=== PATIENT | female | born 1965 | race Caucasian/White ===

== ENCOUNTER 2019-12-28 18:04 | Emergency (ER) | payer OTHER ==
[2019-12-28 18:13] VITALS: BP 126/84
[2019-12-28 19:08] LABS: Urine Appearance Clear; Urine Bilirubin Negative (Negative); Urine Blood 3+ (Negative); Urine Color Straw; Urine Glucose Negative (Negative); Urine Ketones Negative (Negative); Urine Nitrite Negative (Negative); Urine Protein Negative (Negative); Urine Specific Gravity 1.004 (1.010-1.030); Urine Urobilinogen Negative (Negative)
[2019-12-28 19:19] LABS: Urine Bacteria 1+ (Absent); Urine Red Blood Cell 3+(>10/hpf) (Absent); Urine Squamous Epithelial Cell Present (Absent); Urine White Blood Cell 1+(6-10/hpf) (Absent)
--- NOTE | 2019-12-28 19:43 | ED ---
GI/ HPI - HPI Summary HPI Summary: This pt is a 54 Y/O F presenting to [facility] accompanied by her sister with a CC of vaginal bleeding that has been present for 38 days, starting on 11/22/2019. She also states that she is currently lightheaded and has increasing symptoms when climbing stairs or standing from a sitting position. She is also presenting with a cold. She states that she is not having any pain but reports that she has been bleeding since the start of her last period. She saw her provider on 12/25/2019 and stated that she was trying to get scheduled with a fraud investigator but was denied until she was cleared by the ED for any present illness. During her blood test she had elevated liver enzymes and hemoglobin of 8.2. She was recently placed on iron supplements due to the bleeding. She states that her period has been extremely regular and has been present every 28 days. She has a Hx of clots during her period. She denies any recent fevers, N/V , abdominal pain, syncope, and SOB. She states that she was recently sick with a cold that her kids have been having. - History of Current Complaint Chief Complaint: EDVaginalBleeding Time Seen by Provider: 12/28/19 19:28 Stated Complaint: VAGINAL BLEEDING PER PT Hx Obtained From: Patient Hx Last Menstrual Period: 11/22/2019 Onset/Duration: Started Days Ago - 38, Still Present Timing: Constant Current Severity: None Vaginal Bleeding Description: Bright Red Pain Intensity: 0 Location of Pain: None Associated Signs and Symptoms: Positive: Lightheadedness, Cough, Other: - NEGATIVE: SOB. Negative: Syncope, Nausea, Vomiting, Fever, Abdominal Pain, Chest Pain Additional Signs & Symptoms: Positive: Vaginal Bleeding - Allergy/Home Medications Allergies/Adverse Reactions: Allergies Allergy/AdvReac Type Severity Reaction Status Date / Time erythromycin base Allergy Rash Verified 12/28/19 18:11 [From Erythrocin] ofloxacin [From Floxin] Allergy Unknown Verified 12/28/19 18:11 Reaction Details Sulfa (Sulfonamide Allergy Unknown Verified 12/28/19 18:11 Antibiotics) Reaction Details Home Medications: Home Medications NK [No Home Medications Reported] 12/28/19 [History Confirmed 12/28/19] PMH/Surg Hx/FS Hx/Imm Hx Previously Healthy: Yes Endocrine/Hematology History: Denies: Hx Diabetes Respiratory History: Denies: Hx Asthma Sensory History: Denies: Hx Contacts or Glasses Opthamlomology History: Denies: Hx Contacts or Glasses - Cancer History Hx Chemotherapy: No Hx Radiation Therapy: No - Surgical History Surgical History: None - Immunization History Immunizations Up to Date: Yes Infectious Disease History: No Infectious Disease History: Denies: Traveled Outside the [place] in Last 30 Days - Family History Known Family History: Negative: Hypertension, Diabetes - Social History Occupation: Employed Full-time Lives: With Family Alcohol Use: None Hx Substance Use: No Substance Use Type: Reports: None Hx Tobacco Use: No Smoking Status (MU): Never Smoked Tobacco Review of Systems Positive: Other - POSITVE: lightheadedness. Negative: Fever Negative: Chest Pain Positive: Cough. Negative: Shortness Of Breath Negative: Abdominal Pain, Vomiting, Nausea Positive: other - vaginal bleeding Negative: Syncope All Other Systems Reviewed And Are Negative: Yes Physical Exam - Summary Physical Exam Summary: Appearance: Well-appearing, Well-nourished, lying in bed comfortably Skin: Warm, dry, no obvious rash Eyes: sclera anicteric, Mildly pale conjunctiva ENT: mucous membranes moist, pharynx appears normal Neck: Supple, nontender Respiratory: Clear to auscultation, no signs of respiratory distress Cardiovascular: Normal S1, S2. No murmurs. Normal distal pulses in tibial and radial bilaterally. Abdomen: Soft, nontender, normal active bowel sounds present Musculoskeletal: Normal, Strength/ROM Intact Neurological: A&Ox3, awake and alert, mentation is normal, speech is fluent and appropriate Psychiatric: affect is normal, does not appear anxious or depressed Triage Information Reviewed: Yes Vital Signs On Initial Exam: Initial Vitals Temp Pulse Resp BP Pulse Ox 97.8 F 78 18 126/84 96 12/28/19 18:06 12/28/19 18:06 12/28/19 18:06 12/28/19 18:06 12/28/19 18:06 Vital Signs Reviewed: Yes Procedures - Sedation Patient Received Moderate/Deep Sedation with Procedure: No Diagnostics - Vital Signs Vital Signs Temp Pulse Resp BP Pulse Ox 12/28/19 18:06 97.8 F 78 18 126/84 96 - Laboratory Lab Results: Lab Results 12/28/19 Range/Units 18:50 Urine Color Straw Urine Appearance Clear Urine pH 7.0 (5-9) Ur Specific [place] 1.004 L (1.010-1.030) Urine Protein Negative (Negative) Urine Ketones Negative (Negative) Urine Blood 3+ A (Negative) Urine Nitrate Negative (Negative) Urine Bilirubin Negative (Negative) Urine Urobilinogen Negative (Negative) Ur Leukocyte Esterase Negative (Negative) Urine WBC (Auto) 1+(6-10/hpf) A (Absent) Urine RBC (Auto) 3+(>10/hpf) A (Absent) Ur Squamous Epith Cells Present A (Absent) Urine Bacteria 1+ A (Absent) Urine Glucose Negative (Negative) Result Diagrams: 12/28/19 19:31 12/28/19 19:31 Lab Statement: Any lab studies that have been ordered have been reviewed, and results considered in the medical decision making process. Re-Evaluation - Re-Evaluation First Eval Re-Evaluation Time: 20:26 Change: Improved Comment: Pt is agreeable to the Tx plan. GIGU Course/Dx - Course Course Of Treatment: This pt is a 54 Y/O F presenting to [facility] accompanied by her sister with a CC of vaginal bleeding that has been present for 38 days, starting on 11/22/2019. She also states that she is currently lightheaded and has increasing symptoms when climbing stairs or standing from a sitting position. She is also presenting with a cold. She states that she is not having any pain but reports that she has been bleeding since the start of her last period. She saw her provider on 12/25/2019 and stated that she was trying to get scheduled with a fraud investigator but was denied until she was cleared by the ED for any present illness. During her blood test she had elevated liver enzymes and hemoglobin of 8.2. She was recently placed on iron supplements due to the bleeding. She states that her period has been extremely regular and has been present every 28 days until this recent onset. Her PE found that she has mild conjunctival pallor. Her laboratory results show abnormalities in RBC 3.39, Hgb 7.2, Hct 23, MCV 69, MCH 21, RDW 18, AST 55, ALT 75, Ur specific gravity, Urine blood, WBC, RBC, Squamous Epithelial, and Bacteria. Consult at 2021, Dr. Yao, recommends a pelvic US after which the OBGYN clinic in [place] will see the pt tomorrow. Pt eloped at 2213 and elected not to have the Pelvic US. She was diagnosed with dysfunctional uterine bleeding. - Diagnoses Provider Diagnoses: Dysfunctional uterine bleeding Discharge ED - Sign-Out/Discharge Documenting (check all that apply): Patient Departure - eloped - Discharge Plan Condition: Good Disposition: ELOPEMENT Patient Education Materials: Dysfunctional Uterine Bleeding (ED) Referrals: No Primary Care Phys,NOPCP [Primary Care Provider] - Additional Instructions: Dr. Yao would like to see you in the office tomorrow, he will likely do an endometrial biopsy at that time and may start you on provera to stop the bleeding. For now your hemoglobin level is low, but not so low as to require a transfusion. - Billing Disposition and Condition Condition: GOOD Disposition: Elopement - Attestation Statements Document Initiated by Sonny: Yes Documenting Salbadoribe: Abdon Childress Provider For Whom Sonny is Documenting (Include Credential): Sumanth Marrero MD Scribe Attestation: Abdon Jim, maximed for Sumanth Marrero MD on 12/30/19 at 0233. Scribe Documentation Reviewed: Yes Provider Attestation: The documentation as recorded by the Abdon ann accurately reflects the service I personally performed and the decisions made by , Sumanth Marrero MD Status of Scribe Document: Viewed
[2019-12-28 19:57] LABS: ABS Eosinophils 0.3 10^3/ul (0-0.6); ABS Lymphocytes 1.4 10^3/ul (1.0-4.8); ABS Monocytes 0.3 10^3/ul (0-0.8); ABS Neutrophils 2.7 10^3/ul (1.5-7.7); Eosinophil % 6.6 %; Hematocrit 23 % (35-47); Hemoglobin 7.2 g/dL (12.0-16.0); Lymphocyte % 29.9 %; Mean Corpuscular HGB Conc 31 g/dL (31-36); Mean Corpuscular Hemoglobin 21 pg (27-31); Mean Corpuscular Volume 69 fL (80-97); Mean Platelet Volume 7.5 fL (7.4-10.4); Nucleated Red Blood Cells % 0.1; Platelet Count 279 10^3/uL (150-450); Red Blood Count 3.39 10^6 /uL (3.70-4.87); Red Cell Distribution Width 18 % (10-15); White Blood Count 4.7 10^3/uL (3.5-10.8)
[2019-12-28 19:59] LABS: ALT 75 U/L (7-52); AST 55 U/L (13-39); Albumin 4.1 g/dL (3.2-5.2); Albumin/Globulin Ratio 1.2 (1-3); Alkaline Phosphatase 92 U/L (34-104); Anion Gap 5 mmol/L (2-11); BUN/Creatinine Ratio 14.9 (8-20); Blood Urea Nitrogen 10 mg/dL (6-24); CO2 Carbon Dioxide 27 mmol/L (22-32); Chloride 104 mmol/L (101-111); EGFR African American 111.4 (>60); EGFR Non-African American 92.1 (>60); Globulin 3.3 g/dL (2-4); Glucose 97 mg/dL (70-100); Potassium 3.7 mmol/L (3.5-5.0); Sodium 136 mmol/L (135-145); Total Protein 7.4 g/dL (6.4-8.9)
[2019-12-28 21:18] LABS: HCG Pregnancy < 0.60 mIU/mL
--- NOTE | 2020-01-01 17:01 | ED ---
Imaging and Labs Follow Up Follow Up Type: Labs/Cultures Labs/Culture Result: Urine culture growing <10k e. coli and GBS. Patient Communication/Plan: Pt. seen for heavy vaginal bleeding. No report of urinary sxs. Will not treat given low bacterial count. Provider Diagnoses: Dysfunctional uterine bleeding
== END 2019-12-28 22:18 | disposition left against medical advice (07) ==
LOC: ED 18:04
DX: N93.8 Other specified abnormal uterine and vaginal bleeding (principal); Z88.1 Allergy status to other antibiotic agents; Z88.2 Allergy status to sulfonamides
CPT/HCPCS: 36415; 80053; 81003; 81015; 84702; 85025; 86850; 86900; 86901; 87077; 87086; 87186; 99282

== ENCOUNTER 2021-08-26 17:42 | Observation (INO) ==
[2021-08-26 18:19] LABS: Rapid COVID-19 Molecular Detected (Undetected)
[2021-08-26 20:05] LABS: Venous Bicarbonate HCO3 26.7 mmol/L (24-28)
[2021-08-26 20:08] LABS: ABS Lymphocytes 0.8 10^3/ul (1.0-4.8); ABS Monocytes 0.3 10^3/ul (0-0.8); ABS Neutrophils 2.5 10^3/ul (1.5-7.7); Eosinophil % 0.4 %; Hematocrit 40 % (35-47); Hemoglobin 13.4 g/dL (12.0-16.0); Lymphocyte % 21.8 %; Mean Corpuscular HGB Conc 34 g/dL (31-36); Mean Corpuscular Hemoglobin 29 pg (27-31); Mean Corpuscular Volume 86 fL (80-97); Mean Platelet Volume 8.6 fL (7.4-10.4); Platelet Count 115 10^3/uL (150-450); Red Blood Count 4.61 10^6 /uL (3.70-4.87); Red Cell Distribution Width 13 % (10-15); White Blood Count 3.6 10^3/uL (3.5-10.8)
[2021-08-26 20:25] LABS: Albumin 4.1 g/dL (3.2-5.2); Albumin/Globulin Ratio 1.1 (1-3); C Reactive Protein 28.35 mg/L (<8.01); Calcium 9.2 mg/dL (8.6-10.3); Globulin 3.8 g/dL (2-4); Potassium 3.1 mmol/L (3.5-5.0); Total Bilirubin 0.7 mg/dL (0.2-1.0); Total Protein 7.9 g/dL (6.4-8.9); Troponin I 0.01 ng/mL (<0.03)
[2021-08-26] MEDS ORDERED: Potassium Chlor 20 meq TAB.ER PO ONE (20:36)
[2021-08-26 20:43] LABS: Ferritin 146.6 ng/mL (11-307)
[2021-08-26 20:46] LABS: Influenza A Molecular Negative (Negative); Influenza B Molecular Negative (Negative)
[2021-08-26 20:51] LABS: Activated Partial Thrombo Time 33.7 seconds (26.0-38.0); INR 1.29 (0.86-1.15)
[2021-08-26] MEDS ORDERED: Ondansetron 4 mg VIAL 2 MG/ML 2 ml VIAL IV PRN (21:12)
[2021-08-26] MEDS ORDERED: KCL 20 MEQ/100 ML IVPREMIX 20 MEQ/100 ML BAG IV ONE (21:14)
[2021-08-26] MEDS ORDERED: Albuterol HFA INHALER 8 gm MDI INH PRN (22:02)
[2021-08-26] MEDS ORDERED: Remdesivir 100 mg Vial 200 MG in NS 0.9% 250 ml 210 ML IV ONE (22:03)
[2021-08-26 22:07] LABS: Urine Appearance Turbid; Urine Bilirubin Negative (Negative); Urine Blood Negative (Negative); Urine Color Amber; Urine Glucose Negative (Negative); Urine Ketones 1+ (Negative); Urine Nitrite Positive (Negative); Urine Protein 1+(30 mg/dL) (Negative); Urine Specific Gravity 1.018 (1.002-1.030); Urine Urobilinogen Negative (Negative)
[2021-08-26 22:14] LABS: Urine Bacteria 1+ (Absent); Urine Red Blood Cell 1+(3-5/hpf) (Absent); Urine Squamous Epithelial Cell Present (Absent); Urine White Blood Cell 3+(>20/hpf) (Absent)
[2021-08-27 06:28] LABS: Hematocrit 38 % (35-47); Hemoglobin 12.6 g/dL (12.0-16.0); Mean Corpuscular HGB Conc 34 g/dL (31-36); Mean Corpuscular Hemoglobin 29 pg (27-31); Mean Corpuscular Volume 86 fL (80-97); Platelet Count 113 10^3/uL (150-450); Red Blood Count 4.38 10^6 /uL (3.70-4.87); Red Cell Distribution Width 13 % (10-15)
[2021-08-27 06:32] LABS: ABS Lymphocytes 0.7 10^3/ul (1.0-4.8); ABS Monocytes 0.3 10^3/ul (0-0.8); ABS Neutrophils 1.8 10^3/ul (1.5-7.7); Eosinophil % 1.2 %; Lymphocyte % 24.8 %; Nucleated Red Blood Cells % 0.2
[2021-08-27 06:38] LABS: INR 1.31 (0.86-1.15)
[2021-08-27 06:43] LABS: Albumin 3.6 g/dL (3.2-5.2); Albumin/Globulin Ratio 1.1 (1-3); Calcium 8.6 mg/dL (8.6-10.3); Globulin 3.4 g/dL (2-4); Potassium 3.8 mmol/L (3.5-5.0); Total Bilirubin 0.5 mg/dL (0.2-1.0)
[2021-08-27 10:03] LABS: Hepatitis B Surface Antigen Nonreactive (Nonreactive)
[2021-08-27 10:08] LABS: Hepatitis A Ab IgM Negative (Negative); Hepatitis B Core IgM Nonreactive (Nonreactive)
[2021-08-27 10:20] LABS: Hepatitis C Antibody Negative (Negative)
[2021-08-27] MEDS ORDERED: Lactated Ringers 1000 ml BAG 1,000 ML IV ONE (12:04)
[2021-08-27] MEDS ORDERED: Enoxaparin 40 MG/0.4 ML SYR SUBCUT SCH ×2 (18:00→21:00)
[2021-08-27] MEDS ORDERED: Remdesivir 100 mg Vial 100 MG in NS 0.9% 250 ml 230 ML IV SCH (21:00)
[2021-08-28 09:27] LABS: ABS Lymphocytes 0.9 10^3/ul (1.0-4.8); ABS Monocytes 0.2 10^3/ul (0-0.8); ABS Neutrophils 1.8 10^3/ul (1.5-7.7); Eosinophil % 0.2 %; Hematocrit 38 % (35-47); Hemoglobin 12.8 g/dL (12.0-16.0); Mean Corpuscular HGB Conc 33 g/dL (31-36); Mean Corpuscular Hemoglobin 29 pg (27-31); Mean Corpuscular Volume 86 fL (80-97); Mean Platelet Volume 8.1 fL (7.4-10.4); Platelet Count 138 10^3/uL (150-450); Red Blood Count 4.46 10^6 /uL (3.70-4.87); Red Cell Distribution Width 13 % (10-15); White Blood Count 2.9 10^3/uL (3.5-10.8)
[2021-08-28 09:46] LABS: Albumin 3.7 g/dL (3.2-5.2); Calcium 9.1 mg/dL (8.6-10.3); Globulin 3.6 g/dL (2-4); Potassium 3.5 mmol/L (3.5-5.0); Total Bilirubin 0.4 mg/dL (0.2-1.0); Total Protein 7.3 g/dL (6.4-8.9)
[2021-08-28 12:20] VITALS: BP 113/71
== END 2021-08-28 12:50 | disposition home or self-care (01) | DRG 137 ==
LOC: MED 17:42 → ED 17:42 → SUATTDRO 22:23 → MED 23:16
PROVIDERS: ADMIT Internal Medicine; ATTEND Internal Medicine

== ENCOUNTER 2022-07-08 18:55 | Observation (INO) ==
[2022-07-08 19:31] LABS: ABS Eosinophils 0.1 10^3/ul (0-0.6); ABS Monocytes 0.5 10^3/ul (0-0.8); ABS Neutrophils 3.6 10^3/ul (1.5-7.7); Eosinophil % 2.7 %; Hematocrit 42 % (35-47); Hemoglobin 13.6 g/dL (12.0-16.0); Lymphocyte % 19.1 %; Mean Corpuscular HGB Conc 33 g/dL (31-36); Mean Corpuscular Hemoglobin 28 pg (27-31); Mean Corpuscular Volume 87 fL (80-97); Mean Platelet Volume 8.4 fL (7.4-10.4); Nucleated Red Blood Cells % 0.1; Platelet Count 143 10^3/uL (150-450); Red Blood Count 4.83 10^6 /uL (3.70-4.87); Red Cell Distribution Width 13 % (10-15); White Blood Count 5.3 10^3/uL (3.5-10.8)
[2022-07-08 19:54] LABS: INR 1.24 (0.89-1.11)
[2022-07-08 20:17] LABS: Albumin 4.5 g/dL (3.2-5.2); Albumin/Globulin Ratio 1.6 (1-3); Calcium 9.9 mg/dL (8.6-10.3); Globulin 2.8 g/dL (2-4); Magnesium 2.2 mg/dL (1.9-2.7); Potassium 3.7 mmol/L (3.5-5.0); Total Bilirubin 0.7 mg/dL (0.2-1.0); Total Protein 7.3 g/dL (6.4-8.9); eGFR CKD-EPI 86.4 (>60)
[2022-07-08 21:36] LABS: High Sensitivity Troponin 1 Hr 4 pg/mL (<15)
[2022-07-09] MEDS ORDERED: Ondansetron 4 mg VIAL 2 MG/ML 2 ml VIAL IV PRN (01:49)
[2022-07-09 05:37] LABS: ABS Eosinophils 0.1 10^3/ul (0-0.6); ABS Lymphocytes 0.9 10^3/ul (1.0-4.8); ABS Monocytes 0.5 10^3/ul (0-0.8); ABS Neutrophils 3.5 10^3/ul (1.5-7.7); Eosinophil % 1.7 %; Hematocrit 38 % (35-47); Hemoglobin 12.4 g/dL (12.0-16.0); Lymphocyte % 17.3 %; Mean Corpuscular HGB Conc 33 g/dL (31-36); Mean Corpuscular Hemoglobin 29 pg (27-31); Mean Corpuscular Volume 87 fL (80-97); Mean Platelet Volume 8.5 fL (7.4-10.4); Platelet Count 134 10^3/uL (150-450); Red Blood Count 4.34 10^6 /uL (3.70-4.87); Red Cell Distribution Width 13 % (10-15)
[2022-07-09 06:30] LABS: Calcium 9.4 mg/dL (8.6-10.3); HDL Cholesterol 34.9 mg/dL; Potassium 3.7 mmol/L (3.5-5.0); eGFR CKD-EPI 104.9 (>60)
[2022-07-09 09:49] LABS: C Reactive Protein 26.76 mg/L (<8.01)
[2022-07-09 17:28] VITALS: BP 116/86
== END 2022-07-09 17:33 | disposition home or self-care (01) ==
LOC: EDHOLD 18:55 → ED 18:55 → SUATTDRO 07-09 01:49 → EDHOLD 07-09 17:53
PROVIDERS: ADMIT Internal Medicine; ATTEND Internal Medicine

== ENCOUNTER 2024-06-26 15:25 | Observation (INO) ==
[2024-06-26] MEDS: Ondansetron 4 mg VIAL 2 MG/ML 2 ml VIAL IV ONE (16:15)
[2024-06-26] MEDS: Lactated Ringers 1000 ml BAG 1,000 ML IV ONE (16:17)
[2024-06-26 16:26] LABS: ABS Lymphocytes 0.7 10^3/uL (1.0-4.8); ABS Monocytes 0.3 10^3/uL (0.0-0.9); ABS Neutrophils 4.6 10^3/uL (1.5-7.6); Eosinophil % 0.4 %; Hemoglobin 13.7 g/dL (11.5-14.3); Lymphocyte % 13.2 %; Mean Corpuscular Hemoglobin 28.3 pg (27-33); Mean Corpuscular Hgb Conc 33.3 g/dL (31-36); Mean Corpuscular Volume 84.9 fL (80-97); Platelet Count 177 10^3/uL (150-450); Red Blood Count 4.84 10^6/uL (3.63-4.92); Red Cell Distribution Width 13.3 % (12-17); White Blood Count 5.6 10^3/uL (3.8-11.8)
[2024-06-26 16:51] LABS: Albumin 4.3 g/dL (3.2-5.2); Albumin/Globulin Ratio 1.4 (1-3); C Reactive Protein 6.39 mg/L (<8.01); Calcium 9.4 mg/dL (8.6-10.3); Creatinine, Serum 0.61 mg/dL (0.51-0.95); Potassium 3.8 mmol/L (3.5-5.0); Total Bilirubin 0.6 mg/dL (0.2-1.0); Total Protein 7.3 g/dL (6.4-8.9); eGFR CKD-EPI 103.6 (>60)
[2024-06-26 17:37] LABS: Urine Appearance Clear; Urine Bilirubin Negative (Negative); Urine Blood Negative (Negative); Urine Color Colorless; Urine Glucose Negative (Negative); Urine Ketones Trace (Negative); Urine Nitrite Negative (Negative); Urine Protein Negative (Negative); Urine Specific Gravity 1.006 (1.002-1.030); Urine Urobilinogen Negative (Negative); Urine pH 6.5 (5.0-8.0)
[2024-06-26] MEDS: Metoclopramide 5 MG/ML VIAL (10 mg) IV ONE (18:23)
[2024-06-26] MEDS: Acetaminophen IV 1 GM/100ML 1,000 MG/100 ML BAG IV ONE (18:23)
[2024-06-26] MEDS: Iohexol 350 (CONTRAST) 500 ML MDV IV ONE (18:49)
[2024-06-26] MEDS ORDERED: Ondansetron 4 mg VIAL 2 MG/ML 2 ml VIAL IV PRN (21:46)
[2024-06-26] MEDS ORDERED: HYDROmorphone 1 MG/1 ML SYRINGE IV SLOW PU PRN (21:46)
[2024-06-26] MEDS: Piperacillin/Tazobac 3.375 BAG 3.375 GM/100 ML BAG IV ONE (22:18)
[2024-06-27] MEDS: NS 0.9% 1000 ml BAG 1,000 ML IV SCH (00:42)
[2024-06-27] MEDS: Piperacillin/Tazobac 3.375 BAG 3.375 GM/100 ML BAG IV SCH (01:58)
[2024-06-27] MEDS ORDERED: Piperacillin/Tazobac 3.375 BAG 3.375 GM/100 ML BAG IV SCH (02:00)
[2024-06-27 06:04] LABS: ABS Eosinophils 0.1 10^3/uL (0.0-0.5); ABS Lymphocytes 1.3 10^3/uL (1.0-4.8); ABS Monocytes 0.5 10^3/uL (0.0-0.9); ABS Neutrophils 3.1 10^3/uL (1.5-7.6); Eosinophil % 2.1 %; Hematocrit 39.1 % (35-45); Hemoglobin 12.9 g/dL (11.5-14.3); Lymphocyte % 25.4 %; Mean Corpuscular Hemoglobin 28.7 pg (27-33); Mean Corpuscular Hgb Conc 32.9 g/dL (31-36); Mean Corpuscular Volume 87.1 fL (80-97); Mean Platelet Volume 8.1 fL (7.5-11.2); Platelet Count 147 10^3/uL (150-450); Red Blood Count 4.49 10^6/uL (3.63-4.92); Red Cell Distribution Width 13.5 % (12-17)
[2024-06-27 06:23] LABS: C Reactive Protein 7.36 mg/L (<8.01); Calcium 8.8 mg/dL (8.6-10.3); Creatinine, Serum 0.79 mg/dL (0.51-0.95); Potassium 3.7 mmol/L (3.5-5.0); eGFR CKD-EPI 86.7 (>60)
[2024-06-28 08:32] LABS: ABS Eosinophils 0.1 10^3/uL (0.0-0.5); ABS Lymphocytes 1.3 10^3/uL (1.0-4.8); ABS Monocytes 0.3 10^3/uL (0.0-0.9); ABS Neutrophils 2.8 10^3/uL (1.5-7.6); ABS Nucleated RBC 0.01 10^3/ul; Eosinophil % 2.7 %; Hematocrit 37.3 % (35-45); Hemoglobin 12.5 g/dL (11.5-14.3); Lymphocyte % 28.5 %; Mean Corpuscular Hemoglobin 28.7 pg (27-33); Mean Corpuscular Hgb Conc 33.5 g/dL (31-36); Mean Corpuscular Volume 85.7 fL (80-97); Mean Platelet Volume 7.9 fL (7.5-11.2); Nucleated Red Blood Cells % 0.1 %/100WBC (0.0-0.8); Platelet Count 167 10^3/uL (150-450); Red Blood Count 4.35 10^6/uL (3.63-4.92); Red Cell Distribution Width 13.4 % (12-17); White Blood Count 4.6 10^3/uL (3.8-11.8)
[2024-06-28 13:59] VITALS: BP 126/79
== END 2024-06-28 17:00 | disposition home or self-care (01) ==
LOC: EDHOLD 15:25 → ED 15:25 → SSU 22:53
PROVIDERS: ADMIT Surgery; ATTEND Surgery